=== PATIENT | male | born 1985 | race Caucasian/White ===

== ENCOUNTER 2018-10-19 12:25 | Emergency (ER) | payer SELFPAY ==
[~2018-10-19] VITALS: Ht 157.5 cm; Wt 81.6 kg
[2018-10-19 12:31] VITALS: BP 124/76; Ht 157.5 cm; Wt 81.6 kg
== END 2018-10-19 12:54 | disposition home or self-care (01) ==
LOC: ED 12:25
DX: B34.9 Viral infection, unspecified (principal)